=== PATIENT | female | born 1970 | race Caucasian/White ===

== ENCOUNTER 2016-11-05 14:29 | Inpatient (IN) | payer BC, OTHER ==
[2016-11-05] MEDS ORDERED: NITROGLYCERIN OINT 1 INCH/GM PACKET TOPICAL STA (14:41)
[2016-11-05] MEDS ORDERED: LABETALOL 5 MG/ML VIAL MDV IVP STA (14:41)
[2016-11-05] MEDS ORDERED: ASPIRIN 81 MG CHEW PO STA (14:41)
[2016-11-05] MEDS ORDERED: LORazepam 2 MG/ML SYRINGE IV STA (14:42)
--- NOTE | 2016-11-05 14:45 | ED ---
General Adult HPI - General Chief complaint: Dizziness Stated complaint: Poss HIgh Blood Pressure Time Seen by Provider: 11/05/16 14:30 Source: patient, RN notes reviewed Mode of arrival: wheelchair Limitations: no limitations - History of Present Illness Initial comments: This is a 46-year-old female who presents emergency Department complaining of not feeling well for the last couple of days. Patient states she's had some chest pressure over the last couple days as well as a headache and some blurred vision. Patient states she also feels very shaky. Patient denies any past medical history. Patient states she does smoke. Patient denies any high blood pressure or high cholesterol. Patient denies any cardiac disease. Patient denies any recent fever chills or cough. Patient denies any lightheadedness or dizziness. Patient denies any numbness or weakness. Patient denies any abdominal pain patient denies nausea vomiting diarrhea. - Related Data Home Medications Medication Instructions Recorded Confirmed No Known Home Medications [No 11/05/16 11/05/16 Known Home Medications] Allergies Allergy/AdvReac Type Severity Reaction Status Date / Time No Known Allergies Allergy Verified 11/05/16 15:40 Review of Systems ROS Statement: Those systems with pertinent positive or pertinent negative responses have been documented in the HPI. ROS Other: All systems not noted in ROS Statement are negative. Past Medical History Past Medical History: No Reported History Additional Past Medical History / Comment(s): heart murmur History of Any Multi-Drug Resistant Organisms: C-DIFF Date of last positivie culture/infection: 2013/C-diff MDRO Source:: stool Past Surgical History: No Surgical Hx Reported Additional Past Surgical History / Comment(s): jaw surgery. Past Psychological History: No Psychological Hx Reported Smoking Status: Former smoker Past Alcohol Use History: Occasional Past Drug Use History: None Reported General Exam - General Exam Comments Initial Comments: GENERAL: Patient is well-developed and well-nourished. Patient is nontoxic and well- hydrated and is in mild distress. ENT: Neck is soft and supple. No significant lymphadenopathy is noted. Oropharynx is clear. Moist mucous membranes. Neck has full range of motion without eliciting any pain. EYES: The sclera were anicteric and conjunctiva were pink and moist. Extraocular movements were intact and pupils were equal round and reactive to light. Eyelids were unremarkable. PULMONARY: Unlabored respirations. Good breath sounds bilaterally. No audible rales rhonchi or wheezing was noted. CARDIOVASCULAR: There is a regular rate and rhythm without any murmurs gallops or rubs. ABDOMEN: Soft and nontender with normal bowel sounds. No palpable organomegaly was noted. There is no palpable pulsatile mass. SKIN: Skin is clear with no lesions or rashes and otherwise unremarkable. NEUROLOGIC: Patient is alert and oriented x3. Cranial nerves II through XII are grossly intact. Motor and sensory are also intact. Normal speech, volume and content. Symmetrical smile. MUSCULOSKELETAL: Normal extremities with adequate strength and full range of motion. No lower extremity swelling or edema. No calf tenderness. LYMPHATICS: No significant lymphadenopathy is noted PSYCHIATRIC: Normal psychiatric evaluation. Normal interpersonal interactions appears functionally intact in deals appropriately with others. No signs of depression. No signs of anxiety. Limitations: no limitations Course Vital Signs 11/05/16 11/05/16 11/05/16 14:31 15:45 16:00 Temperature 99.1 F 98.2 F 98.6 F Pulse Rate 130 H 87 87 Respiratory 18 16 16 Rate Blood Pressure 240/114 153/92 160/93 O2 Sat by Pulse 100 96 96 Oximetry Medical Decision Making - Medical Decision Making EKG shows sinus tachycardia at 126 bpm IA interval 134 QRSs 84 QT interval 312 QTC is 451. Patient's EKG shows no ST segment elevation or depression or T- wave abdomen is noted. She does have Q waves in leads II, III, and F aVF. CT of the brain was normal. Chest x-ray was normal. Patient got labetalol and Nitropaste for the high blood pressure patient's blood pressure came down to a much more normal level but was yet to be normal. Patient's symptoms resolved except for some mild chest pressure. Spoke with Dr. Flynn she agreed to admit the patient admitted the patient consult cardiology. - Lab Data Result diagrams: 11/05/16 14:42 11/05/16 14:42 Lab Results 11/05/16 11/05/16 11/05/16 Range/Units 14:42 14:42 14:42 WBC 13.9 H (3.8-10.6) k/uL RBC 5.31 (3.80-5.40) m/uL Hgb 16.4 H (11.4-16.0) gm/dL Hct 50.3 H (34.0-46.0) % MCV 94.7 (80.0-100.0) fL MCH 30.9 (25.0-35.0) pg MCHC 32.6 (31.0-37.0) g/dL RDW 12.9 (11.5-15.5) % Plt Count 246 (150-450) k/uL Neutrophils % 79 % Lymphocytes % 16 % Monocytes % 3 % Eosinophils % 1 % Basophils % 1 % Neutrophils # 11.0 H (1.3-7.7) k/uL Lymphocytes # 2.3 (1.0-4.8) k/uL Monocytes # 0.4 (0-1.0) k/uL Eosinophils # 0.1 (0-0.7) k/uL Basophils # 0.1 (0-0.2) k/uL PT (9.0-12.0) sec INR (<1.1) APTT (22.0-30.0) sec D-Dimer (<0.60) mg/L FEU Sodium 140 (137-145) mmol/L Potassium 4.2 (3.5-5.1) mmol/L Chloride 104 (98-107) mmol/L Carbon Dioxide 25 (22-30) mmol/L Anion Gap 11 mmol/L BUN 13 (7-17) mg/dL Creatinine 0.82 (0.52-1.04) mg/dL Est GFR (MDRD) Af Amer >60 (>60 ml/min/1.73 sqM) Est GFR (MDRD) Non-Af >60 (>60 ml/min/1.73 sqM) Glucose 152 H (74-99) mg/dL Calcium 10.4 H (8.4-10.2) mg/dL Magnesium 1.9 (1.6-2.3) mg/dL Total Bilirubin 0.7 (0.2-1.3) mg/dL AST 33 (14-36) U/L ALT 45 (9-52) U/L Alkaline Phosphatase 98 (38-126) U/L Total Creatine Kinase 65 (30-135) U/L CK-MB (CK-2) 0.4 (0.0-2.4) ng/mL CK-MB (CK-2) Rel Index 0.6 Troponin I <0.012 (0.000-0.034) ng/mL NT-Pro-B Natriuret Pep pg/mL Total Protein 7.5 (6.3-8.2) g/dL Albumin 4.6 (3.5-5.0) g/dL 11/05/16 11/05/16 Range/Units 14:42 14:42 WBC (3.8-10.6) k/uL RBC (3.80-5.40) m/uL Hgb (11.4-16.0) gm/dL Hct (34.0-46.0) % MCV (80.0-100.0) fL MCH (25.0-35.0) pg MCHC (31.0-37.0) g/dL RDW (11.5-15.5) % Plt Count (150-450) k/uL Neutrophils % % Lymphocytes % % Monocytes % % Eosinophils % % Basophils % % Neutrophils # (1.3-7.7) k/uL Lymphocytes # (1.0-4.8) k/uL Monocytes # (0-1.0) k/uL Eosinophils # (0-0.7) k/uL Basophils # (0-0.2) k/uL PT 10.1 (9.0-12.0) sec INR 1.0 (<1.1) APTT 23.2 (22.0-30.0) sec D-Dimer 0.31 (<0.60) mg/L FEU Sodium (137-145) mmol/L Potassium (3.5-5.1) mmol/L Chloride (98-107) mmol/L Carbon Dioxide (22-30) mmol/L Anion Gap mmol/L BUN (7-17) mg/dL Creatinine (0.52-1.04) mg/dL Est GFR (MDRD) Af Amer (>60 ml/min/1.73 sqM) Est GFR (MDRD) Non-Af (>60 ml/min/1.73 sqM) Glucose (74-99) mg/dL Calcium (8.4-10.2) mg/dL Magnesium (1.6-2.3) mg/dL Total Bilirubin (0.2-1.3) mg/dL AST (14-36) U/L ALT (9-52) U/L Alkaline Phosphatase (38-126) U/L Total Creatine Kinase (30-135) U/L CK-MB (CK-2) (0.0-2.4) ng/mL CK-MB (CK-2) Rel Index Troponin I (0.000-0.034) ng/mL NT-Pro-B Natriuret Pep 73 pg/mL Total Protein (6.3-8.2) g/dL Albumin (3.5-5.0) g/dL Disposition Clinical Impression: Chest pain, Hypertensive urgency Disposition: ADMITTED IP TO THIS HOSP Referrals: Carlos Lloyd DO [Primary Care Provider] - 1-2 days Time of Disposition: 16:23
[2016-11-05 15:30] LABS: Basophils # (A) 0.1 k/uL (0-0.2); Basophils % (A) 1 %; CH 31.1; Eosinophils # (A) 0.1 k/uL (0-0.7); Eosinophils % (A) 1 %; HCT 50.3 % (34.0-46.0); HDW 1.97; HGB 16.4 gm/dL (11.4-16.0); Luc # (Auto) 0.12; Luc % (Auto) 1; Lymphocytes # (A) 2.3 k/uL (1.0-4.8); Lymphocytes % (A) 16 %; MCH 30.9 pg (25.0-35.0); MCHC 32.6 g/dL (31.0-37.0); MCV 94.7 fL (80.0-100.0); Mean Platelet Volume 7.1; Monocytes # (A) 0.4 k/uL (0-1.0); Monocytes % (A) 3 %; Neutrophils % (A) 79 %; RBC 5.31 m/uL (3.80-5.40); RDW 12.9 % (11.5-15.5); WBC 13.9 k/uL (3.8-10.6); WBC (Perox) 13.27
--- NOTE | 2016-11-05 15:40 | CT ---
EXAMINATION TYPE: CT brain wo con DATE OF EXAM: 11/05/2016 3:24 PM COMPARISON: NONE HISTORY: 46-year-old female complains of headache, dizziness, and high blood pressure. TECHNIQUE: Examination was done in axial plane without intravenous contrast. Coronal and sagittal r econstructions performed. CT DLP: 849.2 mGycm Automated exposure control for dose reduction was used. FINDINGS: There is no evidence of acute intracranial hemorrhage, acute ischemic changes, mass, mass-effect, or extra-axial fluid collection. There is no effacement of cerebral sulci or basal subarachnoid cister ns. There is no hydrocephalus. There is no midline shift. Aragon-white matter distinction is preserv ed. Patient's gaze is divergent suggesting underlying strabismus. Paranasal sinuses and mastoid air cells are well pneumatized. IMPRESSION: No acute intracranial abnormality seen.
[2016-11-05 15:41] LABS: ALT 45 U/L (9-52); AST 33 U/L (14-36); Alkaline Phosphatase 98 U/L (38-126); Anion Gap 11 mmol/L; Blood Urea Nitrogen 13 mg/dL (7-17); Calcium 10.4 mg/dL (8.4-10.2); Carbon Dioxide 25 mmol/L (22-30); Chloride 104 mmol/L (98-107); Glucose 152 mg/dL (74-99); Magnesium 1.9 mg/dL (1.6-2.3); Non-African American GFR(MDRD) >60 (>60 ml/min/1.73 sqM); Potassium 4.2 mmol/L (3.5-5.1); Sodium 140 mmol/L (137-145); Total Bilirubin 0.7 mg/dL (0.2-1.3); Total Protein 7.5 g/dL (6.3-8.2)
--- NOTE | 2016-11-05 15:42 | XR ---
EXAMINATION TYPE: XR chest 2V DATE OF EXAM: 11/05/2016 3:28 PM COMPARISON: None HISTORY: 46-year-old female with chest pain and shortness of breath TECHNIQUE: PA and lateral views FINDINGS: The cardiomediastinal silhouette, aorta, and pulmonary vasculature are within normal limits. Diffuse interstitial prominence has a chronic appearance. No consolidation or pleural effusion. IMPRESSION: Chronic changes without acute process seen.
[2016-11-05 15:48] LABS: Partial Thromboplastin Time 23.2 sec (22.0-30.0); Prothrombin Time 10.1 sec (9.0-12.0)
[2016-11-05 15:53] LABS: Creatine Kinase 65 U/L (30-135)
[2016-11-05 16:06] LABS: Creatine Kinase MB 0.4 ng/mL (0.0-2.4); Troponin I <0.012 ng/mL (0.000-0.034)
[2016-11-05] MEDS ORDERED: ACETAMINOPHEN TAB 500 MG TAB PO STA (16:21)
[2016-11-05] MEDS ORDERED: NITROGLYCERIN SL TABS 0.4 MG TAB SUBLINGUAL PRN (16:23)
[2016-11-05] MEDS: NITROGLYCERIN OINT 1 INCH/GM PACKET TOPICAL SCH (21:07)
[2016-11-05 21:29] LABS: Creatine Kinase 54 U/L (30-135)
[2016-11-05 21:41] LABS: Creatine Kinase MB 0.4 ng/mL (0.0-2.4); Troponin I <0.012 ng/mL (0.000-0.034)
[2016-11-06 03:27] LABS: Cholesterol 189 mg/dL (<200); HDL Cholesterol 61 mg/dL (40-60); Triglycerides 165 mg/dL (<150)
[2016-11-06 03:44] LABS: Creatine Kinase 50 U/L (30-135)
[2016-11-06 03:58] LABS: Creatine Kinase MB 0.4 ng/mL (0.0-2.4); Troponin I <0.012 ng/mL (0.000-0.034)
[2016-11-06] MEDS: NITROGLYCERIN OINT 1 INCH/GM PACKET TOPICAL SCH ×4 (04:05→21:11)
--- NOTE | 2016-11-06 08:03 | P.CRDCN ---
History of Present Illness Consult reason: hypertension History of present illness: Patient admitted with Not feeling well, headache blurring of vision shaky Awaited blood pressure for the last one week on multiple occasions noted as an outpatient Review of systems: No fever chills or rigors, no cough, phlegm or expectoration , no nausea, vomiting or diarrhea, no hematuria, dysuria, no musculoskeletal complaints, no strokes or seizures, no skin lesions. Current smoker Regular alcohol use Past medical history: She denies hypertension diabetes dyslipidemia prior to this No prior heart condition Family history of hypertension Medications none ALLERGIES none On examination blood pressure is normal at this time but upon admission it was quite high heart sounds are normal no murmurs no gallops Breath sounds are normal no rhonchi no crackles Abdomen is soft nontender no bruits Extremities warm no edema No JVD no thyromegaly Impression 46-year-old female presenting with symptoms of dizziness headache and not feeling well for the last one week with documented elevated blood pressures as an outpatient Upon admission the blood pressure was 240/114 mmHg, treated with labetalol ECG showed sinus tachycardia and no ST segment abnormalities, 3 cardiac enzymes are normal History of smoking, social alcohol consumption Denies diabetes denies dyslipidemia denies any other medical conditions Labs are reviewed White count 13.9, normal hemoglobin, electrolytes normal potassium and normal kidney function normal LDL 95, total. 189, and total cholesterol 165, HDL 61 Suggest TSH level, cortisol level, serum metanephrines, serum aldosterone, Renal artery Dopplers tomorrow Start amlodipine 5 mg by mouth daily his morning, observe on telemetry for fluctuations in blood pressure and may consider increasing to 5 mg twice daily of amlodipine if needed 24-hour observation Past Medical History Past Medical History: No Reported History Additional Past Medical History / Comment(s): heart murmur History of Any Multi-Drug Resistant Organisms: C-DIFF Date of last positivie culture/infection: 2013/C-diff MDRO Source:: stool Past Surgical History: No Surgical Hx Reported Additional Past Surgical History / Comment(s): jaw surgery, eye and sinus surgery Past Anesthesia/Blood Transfusion Reactions: No Reported Reaction Past Psychological History: No Psychological Hx Reported Smoking Status: Former smoker Past Alcohol Use History: Occasional Past Drug Use History: None Reported - Past Family History Mother Family Medical History: Hypertension Additional Family Medical History / Comment(s): breast cancer, post polio syndrome. passed at 64 Medications and Allergies Home Medications Medication Instructions Recorded Confirmed Type No Known Home Medications [No 11/05/16 11/05/16 History Known Home Medications] Allergies Allergy/AdvReac Type Severity Reaction Status Date / Time No Known Allergies Allergy Verified 11/05/16 15:40 Physical Exam Vitals: Vital Signs Temp Pulse Pulse Resp BP BP Pulse Ox 11/06/16 04:00 97.9 F 69 18 132/64 93 L 11/05/16 23:26 71 18 111/63 98 11/05/16 23:25 67 18 11/05/16 20:07 98 F 79 18 119/70 98 11/05/16 20:00 74 18 11/05/16 17:00 98.9 F 92 16 127/75 98 11/05/16 16:00 98.6 F 87 16 160/93 96 11/05/16 15:45 98.2 F 87 16 153/92 96 11/05/16 14:31 99.1 F 130 H 18 240/114 100 Intake and Output 11/05/16 11/06/16 11/06/16 22:59 06:59 14:59 Other: Voiding Method Toilet Toilet # Voids 2 2 Results 11/05/16 14:42 11/05/16 14:42 Cardiac Enzymes 11/05/16 11/05/16 11/05/16 Range/Units 14:42 14:42 20:53 AST 33 (14-36) U/L CK-MB (CK-2) 0.4 0.4 (0.0-2.4) ng/mL Troponin I <0.012 <0.012 (0.000-0.034) ng/mL 11/06/16 Range/Units 02:42 AST (14-36) U/L CK-MB (CK-2) 0.4 (0.0-2.4) ng/mL Troponin I <0.012 (0.000-0.034) ng/mL Coagulation 11/05/16 Range/Units 14:42 PT 10.1 (9.0-12.0) sec APTT 23.2 (22.0-30.0) sec Lipids 11/06/16 Range/Units 02:42 Triglycerides 165 H (<150) mg/dL Cholesterol 189 (<200) mg/dL HDL Cholesterol 61 H (40-60) mg/dL CBC 11/05/16 Range/Units 14:42 WBC 13.9 H (3.8-10.6) k/uL RBC 5.31 (3.80-5.40) m/uL Hgb 16.4 H (11.4-16.0) gm/dL Hct 50.3 H (34.0-46.0) % Plt Count 246 (150-450) k/uL Comprehensive Metabolic Panel 11/05/16 Range/Units 14:42 Sodium 140 (137-145) mmol/L Potassium 4.2 (3.5-5.1) mmol/L Chloride 104 (98-107) mmol/L Carbon Dioxide 25 (22-30) mmol/L BUN 13 (7-17) mg/dL Creatinine 0.82 (0.52-1.04) mg/dL Glucose 152 H (74-99) mg/dL Calcium 10.4 H (8.4-10.2) mg/dL AST 33 (14-36) U/L ALT 45 (9-52) U/L Alkaline Phosphatase 98 (38-126) U/L Total Protein 7.5 (6.3-8.2) g/dL Albumin 4.6 (3.5-5.0) g/dL Current Medications Generic Name Dose Route Start Last Admin Trade Name Freq PRN Reason Stop Dose Admin Acetaminophen 650 mg 11/05/16 19:02 Tylenol Tab PO Q4HR PRN Fever and/ or Pain Amlodipine Besylate 5 mg 11/06/16 09:00 Norvasc PO DAILY SANTY Nitroglycerin 1 inch 11/05/16 18:00 11/06/16 06:51 Nitro-Bid Oint TOPICAL Not Given Q6HR [facility] Nitroglycerin 0.4 mg 11/05/16 16:23 Nitrostat SUBLINGUAL Q5M PRN Chest Pain Intake and Output 11/05/16 11/06/16 11/06/16 22:59 06:59 14:59 Other: Voiding Method Toilet Toilet # Voids 2 2 11/05/16 14:42 11/05/16 14:42
[2016-11-06] MEDS ORDERED: ASPIRIN 325 MG TAB PO SCH (09:00)
[2016-11-06] MEDS ORDERED: amLODIPine 5 MG TAB PO SCH (09:00)
[2016-11-06] MEDS: ACETAMINOPHEN TAB 325 MG TAB PO PRN (12:40)
[2016-11-06] MEDS ORDERED: cloNIDine 0.1 MG/24HR PATCH 1 PATCH PATCH TRANSDERM SCH (14:00)
[2016-11-06] MEDS ORDERED: LORazepam 2 MG/ML SYRINGE IV PRN (15:29)
--- NOTE | 2016-11-06 16:03 | HP ---
DATE OF ADMISSION: 11/06/2015 CHIEF COMPLAINT: Dizziness and blurring of vision. HISTORY OF PRESENT ILLNESS: Ms. Dawkins is a 46-year-old female with no significant past medical history, coming to the emergency department with chief complaint of not feeling well for the past couple of days. Patient states that she has been feeling heavy in her head with headaches and some kind of blurry vision along with some chest pressure which made her feel shaky for the past couple of days. She was really not clear what was going on with her as she does not have any past medical history. She does not take any medications at home and she does not smoke. Patient states that she follows with her PCP Dr. Lloyd and her blood pressure has been within normal limits during her office visits. But she also states that a couple of times when she was at the dentist's office she was told that her blood pressure was high. The patient denies having any nausea, vomiting, or diarrhea. She denies having orthopnea, chest pain. No complaints of lower extremity swelling. No history of recent travel. No cough or sputum production. REVIEW OF SYSTEMS: CONSTITUTIONAL: No fevers, chills, or rigors. RESPIRATORY: No cough. No difficulty breathing. CARDIAC: No chest pain or palpitations. GI: No abdominal pain, nausea, vomiting, or diarrhea. : No dysuria or hematuria. MUSCULOSKELETAL: No joint swellings or deformities. ENDOCRINE: No hypothyroidism or diabetes or hypertension. MUSCULOSKELETAL: The patient has some chronic low back pain problems. All 13 review of systems are done and negative except for ones mentioned in the HPI. PAST MEDICAL HISTORY: None. Home medications none. ALLERGIES: None. PAST SURGICAL HISTORY: None. SOCIAL HISTORY: She denies having any history smoking. Occasional alcohol. No history of intravenous drug abuse. FAMILY HISTORY: Positive for hypertension in her mother. On examination, patient's vital signs temperature 98.9, heart rate 64, respirations rate 16, blood pressure 157/71. Saturating 98% on room air. Patient's blood pressure at the time of admission was really high. It was 240/114 with a temperature of 99.9, heart rate of 130. GENERAL EXAMINATION: Patient appears to be no acute distress, comfortably lying in bed. HEAD: Atraumatic, nontraumatic. EYES: Pupils, round, and reactive to light. No pallor. No icterus. NECK: No JVD. No thyromegaly. CARDIOVASCULAR: S1, S2 heard. No additional sounds. LUNGS: Bilaterally, breath sounds are positive. No wheeze or crackles. ABDOMEN: Soft, nontender, no organomegaly. Bowel sounds are positive. EXTREMITIES: No edema. No cyanosis, no clubbing. Peripheral pulses are felt. 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 No focal neurological deficits. PSYCHIATRIC: Appropriate mood and affect. MUSCULOSKELETAL: No joint swelling or deformity. SKIN: No rashes. Patient's labs: White count of 13.9, hemoglobin 16.4, platelets of 246, sodium is 140, potassium 4.2, chloride 104, bicarb 25, BUN 13, creatinine 0.82, troponin less than 0.012 x 3. Triglycerides 165, cholesterol 189 and LDL is 95, HDL is 61, TSH is 2.590. Patient also had a CT of the head and that was showing no acute intracranial abnormality. EKGs within normal limits. ASSESSMENT AND PLAN: Hypertensive urgency. Patient was given IV fluids and has been started and she was given sublingual nitroglycerin. Her blood pressure did trend down and Cardiology, Dr. Zamora evaluated the patient and started her on clonidine 0.1 mg transdermal patch and 5 mg of amlodipine was also ordered. We will also get duodenal artery Doppler and check urine metanephrines and renin- aldosterone ratio for any secondary causes of hypertension. Further recommendations to follow depending on the progress of the patient. HALINA
[2016-11-07] MEDS: NITROGLYCERIN OINT 1 INCH/GM PACKET TOPICAL SCH ×2 (00:07→06:21)
[2016-11-07 07:13] LABS: Basophils # (A) 0.1 k/uL (0-0.2); Basophils % (A) 1 %; CH 30.9; CHCM 32.3; Eosinophils # (A) 0.3 k/uL (0-0.7); Eosinophils % (A) 4 %; HDW 1.96; HGB 14.9 gm/dL (11.4-16.0); Luc # (Auto) 0.14; Luc % (Auto) 2; Lymphocytes # (A) 2.3 k/uL (1.0-4.8); Lymphocytes % (A) 27 %; MCH 31.2 pg (25.0-35.0); MCHC 32.4 g/dL (31.0-37.0); MCV 96.1 fL (80.0-100.0); Monocytes # (A) 0.3 k/uL (0-1.0); Monocytes % (A) 4 %; Neutrophils # (A) 5.1 k/uL (1.3-7.7); Neutrophils % (A) 62 %; RBC 4.78 m/uL (3.80-5.40); RDW 12.9 % (11.5-15.5); WBC 8.2 k/uL (3.8-10.6)
[2016-11-07 07:51] LABS: Anion Gap 9 mmol/L; Blood Urea Nitrogen 13 mg/dL (7-17); Calcium 9.3 mg/dL (8.4-10.2); Carbon Dioxide 21 mmol/L (22-30); Chloride 111 mmol/L (98-107); Glucose 101 mg/dL (74-99); Non-African American GFR(MDRD) >60 (>60 ml/min/1.73 sqM); Potassium 4.5 mmol/L (3.5-5.1); Sodium 141 mmol/L (137-145)
[2016-11-07] MEDS: amLODIPine 10 MG TAB PO SCH (09:53)
--- NOTE | 2016-11-07 10:41 | CONS ---
DATE OF CONSULTATION: Skyla Dawkins is doing reasonably well. She continues to have intermittent episodes of headache and when she does, her blood pressure is usually elevated. Yesterday, I had started her on a clonidine patch as well as on amlodipine 5 mg p.o. daily. This morning looking at her blood pressure readings, her blood pressure is 138/61, 142/68 and 142/75 mmHg. Her respirations are normal. Her temperature is 99.1 degree Fahrenheit. Head and neck examination is normal. Heart sounds S1, S2 are normal. No murmurs or gallops. Breath sounds are normal. ABDOMEN: Soft, nontender. EXTREMITIES: Warm. No edema. IMPRESSION: Hypertensive emergency, symptomatic with headache during rise in blood pressure. Her TSH is normal. Her cortisone level is normal. Secondary hypertension. Labs are pending. Troponins have been normal. Potassium is normal. Suggest increase amlodipine to 10 mg a day. Continue clonidine patch for now and hopefully we can take this off tomorrow or in the next few days when amlodipine shows its full effect. She may split the dose of amlodipine with 5 mg taken twice daily because she paroxysms of elevations blood pressure. She should walk in the hallways. I would switch to an inpatient admission for this lady. She is having symptomatic surges in blood pressure and it would be appropriate to keep her in the hospital rather than send her home to avoid readmission. Just keep her in the hospital and make sure that before she leaves her blood pressure is reasonably well controlled without any significant symptomatic fluctuations, either high or low.
--- NOTE | 2016-11-07 12:07 | US ---
EXAMINATION TYPE: US renal artery duplex complete DATE OF EXAM: 11/07/2016 11:17 AM COMPARISON: US 2013, CT 2012 CLINICAL HISTORY: renal artery stenosis. Inpatient stated has elevated BP with no previous history of HTN; prior smoker. MEASUREMENTS: RENAL SIZE: Rt Kidney: 10.12 x 5.7 x 4.12cm Lt Kidney: 10.7 x 5.1 x 5.2cm RESISTANCE INDEX Right: 0.6 Left: 0.7 RA/AO RATIO (< 3.5 ) Right: 1.5 Left: 1.6 RA VELOCITY ( < 180 cm/s) Right: 89.4cm/s mid Left: 96.7 cm/s mid Right kidney: no hydronephrosis or masses seen. Left kidney: upper pole cortical cyst is noted = 1.2 x 0.9 x 0.9cm. Aorta: mild intimal thickening is noted lower aorta and into right common iliac arter y. IMPRESSION: No diagnostic evidence of renal artery stenosis.
[2016-11-07] MEDS ORDERED: TEMAZEPAM 15 MG CAP PO PRN (14:50)
[2016-11-07] MEDS ORDERED: ALPRAZolam 0.25 MG TAB PO PRN (14:50)
[2016-11-07] MEDS: HYDROcodone/APAP 5-325MG 1 EACH TAB PO PRN (15:42)
[2016-11-07 17:38] LABS: Appearance,Urine Clear (Clear); Bilirubin,Urine Negative (Negative); Glucose,Urine (UA) Negative (Negative); Ketones,Urine Negative (Negative); Leukocyte Esterase,Urine Negative (Negative); Nitrite,Urine Negative (Negative); Protein,Urine Negative (Negative); Specific Gravity,Urine 1.006 (1.001-1.035); UA Billing (MACRO vs. MICRO) CHEM; Urobilinogen,Urine <2.0 mg/dL (<2.0)
--- NOTE | 2016-11-07 21:05 | PN ---
DATE OF SERVICE: 11/07/2016 This 46-year-old woman who was admitted with hypertensive urgency also complains of some chest pains. No fever. No cough. Renal artery duplex was done which was non-diagnostic. No chest pain. No palpitation. No fever at this time. On exam, alert and oriented x3. Pulse 68, blood pressure 164/83, respiration 16, temperature 98.1, pulse ox 97% on room air. HEENT: Conjunctivae normal. NECK: No jugular venous distention. CARDIOVASCULAR SYSTEM: S1, S2 muffled. Ejection systolic murmur. RESPIRATORY: Breath sounds diminished at the bases. A few scattered rhonchi. No crackles. ABDOMEN: Soft, nontender. No mass palpable. LEGS: No edema. No swelling. NERVOUS SYSTEM: Higher functions as mentioned earlier. Moves all 4 limbs. No focal motor or sensory deficit. LYMPHATICS: No lymph node palpable in neck, axillae or groin. SKIN: No ulcer, rash, bleeding. LABS: WBC 8.2, hemoglobin 14.9. Otherwise, glucose 101. ASSESSMENT: 1. Hypertensive urgency with headaches and blurring of vision. 2. Chest pain for evaluation. 3. Increased white count. 4. Increased hemoglobin. 5. Increased calcium. 6. Increased blood sugar. 7. History of heart murmur. 8. History of jaw surgery. 9. History of nicotine dependence. RECOMMENDATIONS AND DISCUSSION: In this 46-year-old woman who presented with multiple complex medical issues, we will monitor the patient closely, continue the current medications, continue with symptomatic treatment. Converting patient's admission because of multiple complex medical issues, as mentioned earlier, and need to be in the hospital for more than 2 consecutive nights. Follow closely with Cardiology. Clonidine patch and Norvasc have been given. Further recommendations to follow. See orders for further details. MTDD
[2016-11-07] MEDS: ACETAMINOPHEN TAB 325 MG TAB PO PRN (21:20)
[2016-11-08 06:43] LABS: Basophils # (A) 0.1 k/uL (0-0.2); Basophils % (A) 1 %; CH 30.9; CHCM 32.6; Eosinophils # (A) 0.3 k/uL (0-0.7); Eosinophils % (A) 4 %; HCT 44.8 % (34.0-46.0); HDW 2.02; HGB 14.7 gm/dL (11.4-16.0); Luc # (Auto) 0.12; Luc % (Auto) 2; Lymphocytes # (A) 2.5 k/uL (1.0-4.8); Lymphocytes % (A) 31 %; MCH 31.2 pg (25.0-35.0); MCHC 32.8 g/dL (31.0-37.0); MCV 95.2 fL (80.0-100.0); Mean Platelet Volume 7.2; Monocytes # (A) 0.4 k/uL (0-1.0); Monocytes % (A) 4 %; Neutrophils # (A) 4.7 k/uL (1.3-7.7); Neutrophils % (A) 58 %; RBC 4.71 m/uL (3.80-5.40); RDW 12.8 % (11.5-15.5)
[2016-11-08 07:10] LABS: Anion Gap 9 mmol/L; Blood Urea Nitrogen 13 mg/dL (7-17); Calcium 9.3 mg/dL (8.4-10.2); Carbon Dioxide 22 mmol/L (22-30); Chloride 108 mmol/L (98-107); Glucose 87 mg/dL (74-99); Non-African American GFR(MDRD) >60 (>60 ml/min/1.73 sqM); Sodium 139 mmol/L (137-145)
[2016-11-08] MEDS ORDERED: PANTOPRAZOLE 40 MG TABLET PO SCH (07:30)
[2016-11-08 07:36] VITALS: RESP 16; TEMP 98.4
[2016-11-08] MEDS: amLODIPine 10 MG TAB PO SCH (07:38)
[2016-11-08] MEDS: HYDROcodone/APAP 5-325MG 1 EACH TAB PO PRN (07:44)
--- NOTE | 2016-11-08 12:47 | P.PN ---
Subjective Principal diagnosis: htn Patient is doing well. She denies any chest discomfort no undue shortness of breath she is sitting in bed comfortably no dizziness lightheadedness no loss of consciousness no palpitations She is afebrile 98.4F pulse rate is in the 60s blood pressure 131/72 mmHg Heart sounds S1 and S2 are normal no gallop Breath sounds are normal no rhonchi no crackles Abdomen is soft nontender Extremities warm no edema Impression essential hypertension with paroxysms of elevated blood pressure with symptoms including headache. After starting amlodipine 10 mg a day and a clonidine patch , her blood pressure has been consistently in the normal range without any significant fluctuations Workup for secondary hypertension so far shows normal TSH normal cortisol level , no evidence for renal artery stenosis by Doppler study Secondary hypertension labs are still pending CT of the brain is within normal limits Triglycerides 165, total cholesterol 189, LDL 95 and HDL 61 Suggest Patient may go home from a cardiac standpoint on amlodipine 10 mg a day and a clonidine patch. I will use the clonidine patch only as a temporary measure and in about 2 weeks I will reassess the maximal effects of amlodipine and decide whether she needs an additional medications such as irbesartan or not Pravachol 20 mg by mouth daily in the interim I will arrange for a follow-up with myself in about 2 weeks Objective - Vital Signs Vital signs: Vital Signs Temp 98.4 F 11/08/16 07:35 Pulse 65 11/08/16 07:35 Resp 16 11/08/16 07:35 BP 131/72 11/08/16 07:35 Pulse Ox 96 11/08/16 07:35 Intake & Output 11/07/16 11/08/16 11/08/16 18:59 06:59 18:59 Intake Total 418 Balance 418 Weight 66.1 kg Intake: Oral 418 Other: Voiding Method Toilet Toilet # Voids 1 1 - Labs CBC & Chem 7: 11/08/16 05:48 11/08/16 05:48 Labs: Abnormal Lab Results - Last 24 Hours (Table) 11/08/16 Range/Units 05:48 Chloride 108 H (98-107) mmol/L
[2016-11-08 12:53] VITALS: BP 136/64; PULSE 78
--- NOTE | 2016-11-09 08:32 | DS ---
DATE OF ADMISSION: 11/07/2016 DATE OF DISCHARGE: 11/08/2016 DATE OF SERVICE: 11/08/2016 FINAL DIAGNOSES: 1. Hypertensive urgency with headaches and blurring of vision. 2. Chest pain for evaluation, possibly musculoskeletal, rule out coronary artery disease. 3. Increased WBC. 4. Increased hemoglobin. 5. Increased calcium. 6. Increased random blood sugar. 7. History of cardiac murmur. 8. History of jaw surgery. 9. History of nicotine dependence. DISCHARGE DISPOSITION: The patient will be discharged in stable condition with guarded prognosis after cardiology clearance. HISTORY OF PRESENT ILLNESS: This 46-year-old woman with a past medical history of multiple medical problems admitted with hypertensive urgency and multiple symptomatology. The patient was treated symptomatically. Myocardial infarction ruled out. Cardiology recommended outpatient followup. The patient also had a renal artery duplex testing, which showed no evidence of any renal artery stenosis. On exam, vitals are stable. CARDIOVASCULAR: S1, S2 muffled. ABDOMEN: Soft. NERVOUS SYSTEM: No focal deficits. DISCHARGE ADVICE: 1. Diet is cardiac, no added salt. 2. Follow up with Dr. Zamora in one week. 3. Follow up with Dr. Lloyd in 1 to 2 days. Medications will be: 1. Tylenol 650 q.4 p.r.n. 2. Xanax 0.25 t.i.d. p.r.n. 3. Norvasc 10 mg p.o. daily. 4. Clonidine patch 0.1/24 hours q. weekly. 5. Protonix 40 mg daily. Once again, the patient will be discharged in a stable condition with guarded prognosis.
== END 2016-11-08 15:44 | disposition home or self-care (01) | DRG 305 ==
LOC: EC 14:29 → 3OBS 16:23 → OBSVTOIN 11-07 12:00 → 6SEL 11-07 18:15
PROVIDERS: ADMIT Internal Medicine; ATTEND Internal Medicine
DX: I16.1 Hypertensive emergency (principal); D72.829 Elevated white blood cell count, unspecified; I16.0 Hypertensive urgency; F17.200 Nicotine dependence, unspecified, uncomplicated; H53.8 Other visual disturbances; R42 Dizziness and giddiness; R51 Headache; R00.0 Tachycardia, unspecified; R01.1 Cardiac murmur, unspecified; R07.89 Other chest pain; R73.09 Other abnormal glucose; G89.29 Other chronic pain; M54.5 Low back pain; Z87.19 Personal history of other diseases of the digestive system; Z80.3 Family history of malignant neoplasm of breast; Z82.49 Family history of ischemic heart disease and other diseases of the circulatory system; Z86.19 Personal history of other infectious and parasitic diseases
CPT/HCPCS: 36415; 70450; 71020; 80048; 80053; 80061; 81003; 82088; 82533; 82550; 82553; 83735; 83835; 83880; 84443; 84484; 85025; 85379; 85610; 85730; 93005; 93975; 96374; 96375; 99285

== ENCOUNTER → 2018-03-16 | Outpatient (CLI) | payer BC ==
--- NOTE | 2018-03-16 16:08 | XR ---
EXAMINATION TYPE: XR elbow complete RT DATE OF EXAM: 03/16/2018 COMPARISON: None HISTORY: Elbow pain TECHNIQUE: 3 view right elbow FINDINGS: No acute fractures evident. Anterior fat pad is normal. No elevation posterior fat pad is e vident. Radius aligns normally with the humerus. Follow-up exam can be performed 7-10 days from acute trauma for continued pain. IMPRESSION: 1. Normal three-view right elbow
== END | disposition home or self-care (01) ==
LOC: RADXRYALE 11:34
PROVIDERS: ATTEND Family Medicine
DX: M25.521 Pain in right elbow (principal)

== ENCOUNTER → 2024-08-27 | Outpatient (CLI) | payer BC ==
--- NOTE | 2024-08-28 10:21 | MM ---
Reason for Exam: Screening (asymptomatic). Last mammogram was performed 8 year(s) and 6 month(s) ago. Patient History: Menarche at age 13. First Full-Term at age 19. Hormonal Contraceptives for 8 years from age 31 until age 39. Maternal grandmother had breast cancer. Mother had breast cancer. Risk Values: Matilda 5 year model risk: 2.2%. NCI Lifetime model risk: 13.6%. Prior Study Comparison: 03/13/2012 Bilateral Screening Mammogram, [facility]. 05/23/2013 Bilateral Screening Mammogram, [facility]. 02/24/2016 Bilateral Screening Mammogram, [facility]. Tissue Density: The breasts are heterogeneously dense, which may obscure small masses. Findings: Analyzed By CAD. There is no suspicious group of microcalcifications or new suspicious mass in either breast. Overall Assessment: Benign, BI-RAD 2 Management: Screening Mammogram of both breasts in 1 year. . Patient should continue monthly self-breast exams. A clinical breast exam by your physician is recommended on an annual basis. This exam should not preclude additional follow-up of suspicious palpable abnormalities. Note on Matilda scores and lifetime risk: 1. A Matilda score greater than 3% is considered moderate risk. If this is the case, consider specialist referral to assess eligibility for a risk reducing agent. 2. If overall lifetime risk for the development of breast cancer is 20% or higher, the patient may qualify for future screening with alternating mammogram and breast MRI. [facility], , 08/28/2024 10:18 AM. Electronically signed and approved by: Lane Erazo M.D. [facility]
== END | disposition home or self-care (01) ==
LOC: RADMAMWWP 14:28
PROVIDERS: ATTEND Family Medicine
DX: Z12.31 Encounter for screening mammogram for malignant neoplasm of breast (principal); R92.333 Mammographic heterogeneous density, bilateral breasts; Z80.3 Family history of malignant neoplasm of breast; Z92.0 Personal history of contraception
CPT/HCPCS: 77063; 77067